=== PATIENT | male | born 1985 | race Caucasian/White ===

== ENCOUNTER 2022-06-30 04:47 | Emergency (ER) | payer SELFPAY ==
[~2022-06-30] VITALS: Ht 172.7 cm; Wt 87.1 kg
[2022-06-30 04:47] VITALS: BP 133/83
--- NOTE | 2022-06-30 04:47 | NUR ---
PT BIB [facility], PREBOOK. TAKEN TO CHAIR
--- NOTE | 2022-06-30 05:40 | NUR ---
Dr. Vargas examining patient.
--- NOTE | 2022-06-30 05:50 | NUR ---
Patient discharged with v/s stable. Written and verbal after care instructions given and explained. Patient verbalized understanding. Police with in custody. All questions addressed prior to discharge. Advised to follow up with PMD.
[2022-06-30 05:51] VITALS: BP 133/83
== END 2022-06-30 05:50 ==
LOC: MED 04:47
DX: S60.512A Abrasion of left hand, initial encounter (principal); V49.88XA Car occupant (driver) (passenger) injured in other specified transport accidents, initial encounter; Y93.89 Activity, other specified; Y92.89 Other specified places as the place of occurrence of the external cause; Y99.8 Other external cause status
CPT/HCPCS: 99283